=== PATIENT | male | born 1990 | race Caucasian/White ===

== ENCOUNTER 2016-07-20 22:05 | Emergency (ER) | payer BC ==
[2016-07-20] MEDS ORDERED: Sodium Chloride 0.9% 2.5 ML Syringe FLUSH PRN (22:25)
[2016-07-20] MEDS ORDERED: Ondansetron 4 MG/2 ML SDV IVPUSH ONE (22:25)
[2016-07-20] MEDS ORDERED: Ketorolac 30 MG/ML SDV IVPUSH ONE (22:25)
[2016-07-20] MEDS ORDERED: Sodium Chloride 0.9% 1,000 ML IV ONE ×2 (22:25→23:54)
[2016-07-20] MEDS ORDERED: Acetaminophen 500 MG Tab PO ONE (22:25)
[2016-07-20] MEDS ORDERED: Sodium Chloride 0.9% 10 ML Syringe FLUSH PRN (22:25)
--- NOTE | 2016-07-20 22:30 | EDM.PDOC ---
ED HPI GENERAL MEDICAL PROBLEM - General Chief Complaint: Neurological Problem Stated Complaint: DIZZY/WEAK/FEVER Time Seen by Provider: 07/20/16 22:18 - History of Present Illness INITIAL COMMENTS - FREE TEXT/NARRATIVE: HISTORY AND PHYSICAL: History of present illness: The patient is a 26-year-old male with no stated medical problems who presents with complaints of feeling poorly yesterday with some nausea but no vomiting as well as chills and occasional cough. Patient states that the symptoms progressed today and seemed to get worse about 10 AM when he was at work and he felt very lightheaded and dizzy and thought he might pass out. At that time he felt very cold and take his temperature and according to his blood pressure was "low" when it was checked at work. He did not seek treatment at that time and says that he has been having intermittent coughing and vomiting all day today. He is thirsty but he cannot keep anything down. He said no urinary complaints no flank pain no abdominal pain no chest pain or shortness of breath. He has had no diarrhea. He has no leg pain specifically but says that his whole body is achy and he feels generalized weakness. The patient says that when he tries to stand up he feels very lightheaded but he has not truly pass out or blacked out. He has a slight sore throat congestion but no discrete localized headache neck pain or back pain. Is no focal weakness or neurosensory changes. Patient did not get his influenza shot this year and has no surgical history is significant. Review of systems: As per history of present illness and below otherwise all systems reviewed and negative. Past medical history: As per history of present illness and as reviewed below otherwise noncontributory. Surgical history: As per history of present illness and as reviewed below otherwise noncontributory. Social history: No reported history of drug or alcohol abuse. Family history: As per history of present illness and as reviewed below otherwise noncontributory. Physical exam: General: Well-developed well-nourished overweight male who is nontoxic but looks very flushed in his lips are very dry. He is speaking clearly and has an occasional dry cough on my evaluation. Vital signs as noted by me including the temperature of 101.9. HEENT: Atraumatic, normocephalic, pupils reactive, negative for conjunctival pallor or scleral icterus, mucous membranes tacky, throat clear of exudates the bilateral tonsils are enlarged and reddened the right slightly greater than the left the uvula is midline without shift and the tonsils are not kissing, there is some shotty cervical adenopathy anteriorly but no posterior adenopathy and no nuchal rigidity no sinus tenderness,, neck supple, nontender, trachea midline. Lungs: Clear to auscultation, breath sounds equal bilaterally, chest nontender. No work or breathing or sensory muscle use Heart: S1S2, regular rhythm in telemetry tachycardic rate on my evaluation, negative for clicks, rubs, or JVD. Abdomen: Soft, nondistended, nontender. Bowel sounds are hypoactive Negative for masses or hepatosplenomegaly. Negative for costovertebral tenderness. Pelvis: Stable nontender. Genitourinary: Deferred. Rectal: Deferred. Extremities: Atraumatic, negative for cords or calf pain. Neurovascular unremarkable. Full range of motion without defects or deficits Neuro: Awake, alert, oriented. Cranial nerves II through XII unremarkable. Cerebellum unremarkable. Motor and sensory unremarkable throughout. Exam nonfocal. Back: There are no midline step-offs tenderness or defects the thoracic or lumbar spine and no CVA or lumbar paraspinal tenderness on palpation. Diagnostics: EKG CBC CMP lactic acid UA urine culture blood cultures x2 troponin Monospot influenza swab rapid strep chest x-ray orthostatic vitals Therapeutics: IV O2 monitor IV fluids Zofran Toradol Tylenol Rocephin Decadron Patient was made aware of all testing results and care plan for home. He is currently receiving the remainder of his IV fluids, the second liter, and he has finished his antibiotics. We'll plan on discharge home on Cefdnir and close followup with family physician. I will advise Tylenol and ibuprofen around the clock for fevers and hydration. I've advised him about reasons to return to the ER Impression: Strep tonsillitis/leukocytosis and fever, lightheadedness and clinical dehydration improving Definitive disposition and diagnosis as appropriate pending reevaluation and review of above. - Related Data Allergies Allergy/AdvReac Type Severity Reaction Status Date / Time No Known Allergies Allergy Verified 07/20/16 22:23 Home Meds: Home Meds . [No Known Home Meds] 07/20/16 [History] ED ROS GENERAL - Review of Systems Review Of Systems: ROS reveals no pertinent complaints other than HPI. ED EXAM, GENERAL - Physical Exam Exam: See Below (See dictation) Course - Vital Signs Last Recorded V/S: Last Vital Signs Temp 37.4 C 07/21/16 00:12 Pulse 93 07/21/16 00:12 Resp 18 07/21/16 00:12 BP 122/61 07/21/16 00:12 Pulse Ox 95 07/21/16 00:12 - Orders/Labs/Meds Orders: Active Orders 24 hr Category Date Time Status Blood Glucose Check, Bedside [RC] ONETIME Care 07/20/16 22:24 Active Cardiac Monitoring [RC] . DIRECTED Care 07/20/16 22:24 Active EKG Documentation Completion [RC] STAT Care 07/20/16 22:24 Active Orthostatic Vital Signs [RC] ASDIRECTED Care 07/20/16 22:25 Inactive Pulse Oximetry [RC] ASDIRECTED Care 07/20/16 22:24 Active Chest 2V [CR] Stat Exams 07/20/16 22:25 Taken CULTURE BLOOD [BC] Stat Lab 07/20/16 22:37 Received CULTURE BLOOD [BC] Stat Lab 07/20/16 22:45 Received CULTURE URINE [RM] Stat Lab 07/20/16 23:14 Received Sodium Chloride 0.9% [Saline Flush] Med 07/20/16 22:25 Active 10 ml FLUSH ASDIRECTED PRN Sodium Chloride 0.9% [Saline Flush] Med 07/20/16 22:25 Active 2.5 ml FLUSH ASDIRECTED PRN Blood Culture x2 Reflex Set [OM.PC] Stat Oth 07/20/16 22:24 Ordered Saline Lock Insert [OM.PC] Stat Oth 07/20/16 22:24 Ordered Medication Orders Sodium Chloride (Saline Flush) 10 ml FLUSH ASDIRECTED PRN PRN Reason: Keep Vein Open Last Admin: 07/21/16 00:19 Dose: 10 ml Sodium Chloride (Saline Flush) 2.5 ml FLUSH ASDIRECTED PRN PRN Reason: Keep Vein Open Last Admin: 07/21/16 00:19 Dose: 2.5 ml Labs: Laboratory Tests 07/20/16 07/20/16 07/20/16 Range/Units 22:37 22:37 22:37 WBC 22.71 H (4.0-11.0) K/uL RBC 4.76 (4.50-5.90) M/uL Hgb 14.0 (13.0-17.0) g/dL Hct 42.2 (38.0-50.0) % MCV 88.7 (80.0-98.0) fL MCH 29.4 (27.0-32.0) pg MCHC 33.2 (31.0-37.0) g/dL RDW Std Deviation 41.4 (28.0-62.0) fl RDW Coeff of Jason 13 (11.0-15.0) % Plt Count 202 (150-400) K/uL MPV 10.40 (7.40-12.00) fL Add Manual Diff YES Neutrophils % (Manual) 72 (48.0-80.0) % Band Neutrophils % 14 % Lymphocytes % (Manual) 6 L (16.0-40.0) % Monocytes % (Manual) 8 (0.0-15.0) % Nucleated RBC % 0.0 /100WBC Absolute Seg Neuts 16.4 Band Neutrophils # 3.2 Lymphocytes # (Manual) 1.4 Monocytes # (Manual) 1.8 Nucleated RBCs # 0 K/uL Lactate 1.4 (0.20-2.00) mmol/L Sodium 136 (136-146) mmol/L Potassium 4.0 (3.5-5.1) mmol/L Chloride 105 (98-110) mmol/L Carbon Dioxide 22 (21-31) mmol/L BUN 15 (6.0-23.0) mg/dL Creatinine 1.0 (0.6-1.5) mg/dL Est Cr Clr Drug Dosing 114.57 mL/min Estimated GFR (MDRD) > 60.0 ml/min Glucose 131 H (60-110) mg/dL POC Glucose (60-110) mg/dL Calcium 8.7 L (8.8-10.8) mg/dL Total Bilirubin 1.1 (0.1-1.5) mg/dL AST 18 (5-40) IU/L ALT 41 (8-54) IU/L Alkaline Phosphatase 67 (40-150) Troponin I (0.0-0.29) NG/ML Total Protein 7.0 (6.0-8.0) g/dL Albumin 3.7 (3.5-5.0) g/dL Globulin 3.3 (2.0-3.5) g/dL Albumin/Globulin Ratio 1.1 L (1.3-2.8) Urine Color Urine Appearance Urine pH (5.0-8.0) Ur Specific [place] (1.001-1.035) Urine Protein (NEGATIVE) mg/dL Urine Glucose (UA) (NEGATIVE) mg/dL Urine Ketones (NEGATIVE) mg/dL Urine Occult Blood (NEGATIVE) Urine Nitrite (NEGATIVE) Urine Bilirubin (NEGATIVE) Urine Urobilinogen (<2.0) EU/dL Ur Leukocyte Esterase (NEGATIVE) Urine RBC (0-2/HPF) Urine WBC (0-5/HPF) Ur Epithelial Cells (NONE-FEW) Amorphous Sediment (NEGATIVE) Urine Bacteria (NEGATIVE) Monoscreen (NEG) 07/20/16 07/20/16 07/20/16 Range/Units 22:37 22:37 23:09 WBC (4.0-11.0) K/uL RBC (4.50-5.90) M/uL Hgb (13.0-17.0) g/dL Hct (38.0-50.0) % MCV (80.0-98.0) fL MCH (27.0-32.0) pg MCHC (31.0-37.0) g/dL RDW Std Deviation (28.0-62.0) fl RDW Coeff of Jason (11.0-15.0) % Plt Count (150-400) K/uL MPV (7.40-12.00) fL Add Manual Diff Neutrophils % (Manual) (48.0-80.0) % Band Neutrophils % % Lymphocytes % (Manual) (16.0-40.0) % Monocytes % (Manual) (0.0-15.0) % Nucleated RBC % /100WBC Absolute Seg Neuts Band Neutrophils # Lymphocytes # (Manual) Monocytes # (Manual) Nucleated RBCs # K/uL Lactate (0.20-2.00) mmol/L Sodium (136-146) mmol/L Potassium (3.5-5.1) mmol/L Chloride (98-110) mmol/L Carbon Dioxide (21-31) mmol/L BUN (6.0-23.0) mg/dL Creatinine (0.6-1.5) mg/dL Est Cr Clr Drug Dosing mL/min Estimated GFR (MDRD) ml/min Glucose (60-110) mg/dL POC Glucose 106 (60-110) mg/dL Calcium (8.8-10.8) mg/dL Total Bilirubin (0.1-1.5) mg/dL AST (5-40) IU/L ALT (8-54) IU/L Alkaline Phosphatase (40-150) Troponin I < 0.10 (0.0-0.29) NG/ML Total Protein (6.0-8.0) g/dL Albumin (3.5-5.0) g/dL Globulin (2.0-3.5) g/dL Albumin/Globulin Ratio (1.3-2.8) Urine Color Urine Appearance Urine pH (5.0-8.0) Ur Specific [place] (1.001-1.035) Urine Protein (NEGATIVE) mg/dL Urine Glucose (UA) (NEGATIVE) mg/dL Urine Ketones (NEGATIVE) mg/dL Urine Occult Blood (NEGATIVE) Urine Nitrite (NEGATIVE) Urine Bilirubin (NEGATIVE) Urine Urobilinogen (<2.0) EU/dL Ur Leukocyte Esterase (NEGATIVE) Urine RBC (0-2/HPF) Urine WBC (0-5/HPF) Ur Epithelial Cells (NONE-FEW) Amorphous Sediment (NEGATIVE) Urine Bacteria (NEGATIVE) Monoscreen NEGATIVE (NEG) 07/20/16 Range/Units 23:30 WBC (4.0-11.0) K/uL RBC (4.50-5.90) M/uL Hgb (13.0-17.0) g/dL Hct (38.0-50.0) % MCV (80.0-98.0) fL MCH (27.0-32.0) pg MCHC (31.0-37.0) g/dL RDW Std Deviation (28.0-62.0) fl RDW Coeff of Jason (11.0-15.0) % Plt Count (150-400) K/uL MPV (7.40-12.00) fL Add Manual Diff Neutrophils % (Manual) (48.0-80.0) % Band Neutrophils % % Lymphocytes % (Manual) (16.0-40.0) % Monocytes % (Manual) (0.0-15.0) % Nucleated RBC % /100WBC Absolute Seg Neuts Band Neutrophils # Lymphocytes # (Manual) Monocytes # (Manual) Nucleated RBCs # K/uL Lactate (0.20-2.00) mmol/L Sodium (136-146) mmol/L Potassium (3.5-5.1) mmol/L Chloride (98-110) mmol/L Carbon Dioxide (21-31) mmol/L BUN (6.0-23.0) mg/dL Creatinine (0.6-1.5) mg/dL Est Cr Clr Drug Dosing mL/min Estimated GFR (MDRD) ml/min Glucose (60-110) mg/dL POC Glucose (60-110) mg/dL Calcium (8.8-10.8) mg/dL Total Bilirubin (0.1-1.5) mg/dL AST (5-40) IU/L ALT (8-54) IU/L Alkaline Phosphatase (40-150) Troponin I (0.0-0.29) NG/ML Total Protein (6.0-8.0) g/dL Albumin (3.5-5.0) g/dL Globulin (2.0-3.5) g/dL Albumin/Globulin Ratio (1.3-2.8) Urine Color YELLOW Urine Appearance CLEAR Urine pH 7.5 (5.0-8.0) Ur Specific [place] 1.020 (1.001-1.035) Urine Protein 30 (NEGATIVE) mg/dL Urine Glucose (UA) NEGATIVE (NEGATIVE) mg/dL Urine Ketones NEGATIVE (NEGATIVE) mg/dL Urine Occult Blood NEGATIVE (NEGATIVE) Urine Nitrite NEGATIVE (NEGATIVE) Urine Bilirubin NEGATIVE (NEGATIVE) Urine Urobilinogen 2.0 H (<2.0) EU/dL Ur Leukocyte Esterase NEGATIVE (NEGATIVE) Urine RBC 0-2 (0-2/HPF) Urine WBC 0-2 (0-5/HPF) Ur Epithelial Cells RARE (NONE-FEW) Amorphous Sediment LIGHT (NEGATIVE) Urine Bacteria RARE (NEGATIVE) Monoscreen (NEG) Meds: Medications Generic Name Dose Route Start Last Admin Trade Name Freq PRN Reason Stop Dose Admin Sodium Chloride 10 ml 07/20/16 22:25 07/21/16 00:19 Saline Flush FLUSH 10 ml ASDIRECTED PRN Administration Keep Vein Open Sodium Chloride 2.5 ml 07/20/16 22:25 07/21/16 00:19 Saline Flush FLUSH 2.5 ml ASDIRECTED PRN Administration Keep Vein Open Discontinued Medications Generic Name Dose Route Start Last Admin Trade Name [place] PRN Reason Stop Dose Admin Acetaminophen 1,000 mg 07/20/16 22:25 07/20/16 22:48 Tylenol Extra Strength PO 07/20/16 22:26 1,000 mg ONETIME ONE Administration Dexamethasone 8 mg 07/21/16 00:49 Dexamethasone IVPUSH 07/21/16 00:50 ONETIME ONE Dexamethasone 10 mg 07/21/16 01:09 Dexamethasone IVPUSH 07/21/16 01:10 ONETIME ONE Dexamethasone Confirm 07/21/16 01:16 Dexamethasone Administered 07/21/16 01:17 Dose 10 mg .ROUTE .STK-MED ONE Sodium Chloride 1,000 mls @ 999 mls/hr 07/20/16 22:25 07/20/16 22:40 Normal Saline IV 07/20/16 23:25 999 mls/hr STAT ONE Administration Ceftriaxone Sodium/Dextrose 2 50 mls @ 100 mls/hr 07/20/16 23:53 07/21/16 00: 14 gm/ Premix IV 07/21/16 00:22 100 mls/hr ONETIME ONE Administration Sodium Chloride 1,000 mls @ 999 mls/hr 07/20/16 23:54 07/21/16 00:13 Normal Saline IV 07/21/16 00:54 999 mls/hr STAT ONE Administration Ketorolac Tromethamine 30 mg 07/20/16 22:25 07/20/16 22:44 Toradol IVPUSH 07/20/16 22:26 30 mg ONETIME ONE Administration Ondansetron HCl 4 mg 07/20/16 22:25 07/20/16 22:42 Zofran IVPUSH 07/20/16 22:26 4 mg ONETIME ONE Administration Departure - Departure Time of Disposition: 01:22 Disposition: Home, Self-Care 01 Condition: good Clinical Impression: Strep pharyngitis, Dehydration, Lightheadedness Leukocytosis Qualifiers: Leukocytosis type: bandemia Qualified Code(s): D72.825 - Bandemia Referrals: PCP,None [Primary Care Provider] - Forms: ED Department Discharge Additional Instructions: The following information is given to patients seen in the emergency department who are being discharged to home. This information is to outline your options for follow-up care. We provide all patients seen in our emergency department with a follow-up referral. The need for follow-up, as well as the timing and circumstances, are variable depending upon the specifics of your emergency department visit. If you don't have a primary care physician on staff, we will provide you with a referral. We always advise you to contact your personal physician following an emergency department visit to inform them of the circumstance of the visit and for follow-up with them and/or the need for any referrals to a consulting specialist. The emergency department will also refer you to a specialist when appropriate. This referral assures that you have the opportunity for followup care with a specialist. All of these measure are taken in an effort to provide you with optimal care, which includes your followup. Under all circumstances we always encourage you to contact your private physician who remains a resource for coordinating your care. When calling for followup care, please make the office aware that this follow-up is from your recent emergency room visit. If for any reason you are refused follow-up, please contact the [facility] emergency department at and ask to speak to the emergency department charge nurse. [facility] Primary care- [place] [address] Please take Tylenol every 4-6 hours and Motrin every 6 hours to keep your fever down for the next several days. Please push hydration as we discussed. Take all medications as prescribed until they are finished. Please call and followup with one of our clinic physicians for further reevaluation and care and a repeat blood count once you are improving. Return to ER as needed and as discussed. - My Orders Last 24 Hours: My Active Orders 07/20/16 22:24 Blood Glucose Check, Bedside [RC] ONETIME Cardiac Monitoring [RC] . DIRECTED EKG Documentation Completion [RC] STAT Pulse Oximetry [RC] ASDIRECTED Blood Culture x2 Reflex Set [OM.PC] Stat Saline Lock Insert [OM.PC] Stat 07/20/16 22:25 Orthostatic Vital Signs [RC] ASDIRECTED Chest 2V [CR] Stat Sodium Chloride 0.9% [Saline Flush] 10 ml FLUSH ASDIRECTED PRN Sodium Chloride 0.9% [Saline Flush] 2.5 ml FLUSH ASDIRECTED PRN 07/20/16 22:37 CULTURE BLOOD [BC] Stat 07/20/16 22:45 CULTURE BLOOD [BC] Stat 07/20/16 23:14 CULTURE URINE [RM] Stat - Assessment/Plan Last 24 Hours: My Active Orders 07/20/16 22:24 Blood Glucose Check, Bedside [RC] ONETIME Cardiac Monitoring [RC] . DIRECTED EKG Documentation Completion [RC] STAT Pulse Oximetry [RC] ASDIRECTED Blood Culture x2 Reflex Set [OM.PC] Stat Saline Lock Insert [OM.PC] Stat 07/20/16 22:25 Orthostatic Vital Signs [RC] ASDIRECTED Chest 2V [CR] Stat Sodium Chloride 0.9% [Saline Flush] 10 ml FLUSH ASDIRECTED PRN Sodium Chloride 0.9% [Saline Flush] 2.5 ml FLUSH ASDIRECTED PRN 07/20/16 22:37 CULTURE BLOOD [BC] Stat 07/20/16 22:45 CULTURE BLOOD [BC] Stat 07/20/16 23:14 CULTURE URINE [RM] Stat
[2016-07-20 23:10] LABS: CHLORIDE,CL 105 mmol/L (98-110); SODIUM,NA 136 mmol/L (136-146)
[2016-07-20] MEDS ORDERED: cefTRIAXone 2 GM in Premix Bag 1 BAG IV ONE (23:53)
[2016-07-21] MEDS ORDERED: Dexamethasone 4 MG/ML SDV IVPUSH ONE ×2 (00:49→01:09)
[2016-07-21] MEDS: Dexamethasone 10 MG/ML SDV ONE ×2 (01:20→01:23)
[2016-07-21 01:56] VITALS: BP 104/60
--- NOTE | 2016-07-21 11:32 | CR ---
EXAM DATE: 07/20/16 PATIENT'S AGE: 26 Patient: REECE PAPPAS Facility: [place], [place] Site . Site : 1990 Study: XRay Chest [id number] 11:40:37 PM Ordering Physician: Tammy Klein Final Report: INDICATION: dizziness, fever, weakness TECHNIQUE: Chest 2 views COMPARISON: None FINDINGS: Cardiovascular and mediastinum: Heart size and vasculature are normal in caliber and appearance. Mediastinum is within normal limits. Lungs and pleural spaces: No focal consolidation. No sign of pleural effusion. No pneumothorax. Bones and soft tissues: No significant findings. IMPRESSION: No acute cardiopulmonary disease. Dictated by Bayron Glover MD @ 07/20/2016 11:44:36 PM Dictated by: Bayron Glover MD @ 07/20/2016 23:45:42 (Electronic Signature) Report Signed by Proxy and Original Signed Document filed in the Medical Record. [facility]
== END 2016-07-21 01:50 | disposition home or self-care (01) ==
LOC: MW.ED 22:05
DX: E86.0 Dehydration (principal); J02.0 Streptococcal pharyngitis; D72.825 Bandemia
CPT/HCPCS: 36415; 71020; 80053; 81001; 82962; 83605; 84484; 85025; 86308; 87040; 87086; 87804; 87880; 93005; 96361; 96365; 96375; 99284; A9270; J0696; J1100; J1885; J2405; J7040

== ENCOUNTER 2022-03-31 07:24 | Day surgery (SDC) | payer BC ==
[~2022-03-31 07:24] MED LIST: Lactated Ringers 1,000 ML IV SCH
[2022-03-31] MEDS ORDERED: Propofol 200 MG/20 ML SDV ONE (07:34)
[2022-03-31] MEDS ORDERED: Lidocaine 2% 5 ML SDV ONE (07:34)
[2022-03-31] MEDS ORDERED: fentaNYL 100 MCG/2 ML SDV ONE (07:34)
[2022-03-31] MEDS ORDERED: Naloxone 0.4 MG/ML SDV IVPUSH PRN (07:50)
[2022-03-31] MEDS ORDERED: Albuterol 0.083% 2.5 MG/3 ML Neb Soln NEB PRN (07:50)
[2022-03-31] MEDS ORDERED: fentaNYL 50 MCG/ML SDV IVPUSH PRN (07:50)
[2022-03-31] MEDS ORDERED: HYDROmorphone 1 MG/ML Syringe IVPUSH PRN (07:50)
[2022-03-31] MEDS ORDERED: Ondansetron 4 MG/2 ML SDV IVPUSH PRN (07:50)
[2022-03-31] MEDS ORDERED: Morphine 2 MG/ML SYRINGE IVPUSH PRN (07:50)
[2022-03-31] MEDS ORDERED: Metoclopramide 10 MG/2 ML SDV IVPUSH PRN (07:50)
[2022-03-31 10:14] VITALS: BP 123/61; PULSE 62
== END 2022-03-31 10:03 | disposition home or self-care (01) ==
LOC: MW.SDS 07:24
PROVIDERS: ATTEND Surgery
DX: K29.50 Unspecified chronic gastritis without bleeding (principal); K21.9 Gastro-esophageal reflux disease without esophagitis; R19.5 Other fecal abnormalities; E66.9 Obesity, unspecified; K52.9 Noninfective gastroenteritis and colitis, unspecified; F17.210 Nicotine dependence, cigarettes, uncomplicated; Z68.41 Body mass index [BMI] 40.0-44.9, adult; Z98.890 Other specified postprocedural states
CPT/HCPCS: 43239; 45380; J2704; J3010; J7120

== ENCOUNTER 2024-04-21 09:23 | Emergency (ER) | payer BC ==
[2024-04-21] MEDS ORDERED: Sodium Chloride 0.9% 10 ML Syringe FLUSH PRN (09:25)
[2024-04-21] MEDS ORDERED: Sodium Chloride 0.9% 2.5 ML Syringe FLUSH PRN (09:25)
[2024-04-21 09:52] LABS: BASOPHILS ABSOLUTE AUTO 0.07 K/uL (0.00-0.20); BASOPHILS PERCENT AUTO 0.5 % (0.0-1.0); EOSINOPHILS ABSOLUTE AUTO 0.46 K/uL (0.00-0.45); EOSINOPHILS PERCENT AUTO 3.2 % (0.0-6.0); HEMATOCRIT 52.2 % (42.0-52.0); IMMATURE GRAN ABSOLUTE AUTO 0.14 K/uL (0.00-0.05); LYMPHOCYTES ABSOLUTE AUTO 3.22 K/uL (1.00-4.80); LYMPHOCYTES PERCENT AUTO 22.2 % (24.0-44.0); MEAN CORPUSCULAR HEMOGLOBIN 29.4 pg (28.0-32.0); MEAN CORPUSCULAR HGB CONC 34.5 g/dL (32.0-36.0); MEAN CORPUSCULAR VOLUME 85.2 fL (83.0-99.0); MEAN PLATELET VOLUME 9.7 fL (9.4-12.4); MONOCYTES ABSOLUTE AUTO 0.88 K/uL (0.00-0.80); MONOCYTES PERCENT AUTO 6.1 % (0.0-8.0); NEUTROPHILS ABSOLUTE AUTO 9.73 K/uL (1.80-7.70); PLATELET COUNT,PLT 243 K/uL (150-400); RED BLOOD CELL COUNT 6.13 M/uL (4.52-5.90)
[2024-04-21 10:35] LABS: A/G RATIO 0.9 (0.9-1.6); ALANINE AMINOTRANSFERASE,ALT 37 IU/L (14-63); ALBUMIN 3.7 g/dL (3.4-5.0); ALKALINE PHOSPHATASE 97 U/L (46-116); ASPARTATE AMNIOTRANSFERASE,AST 16 IU/L (15-37); BILIRUBIN TOTAL 1.2 mg/dL (0.2-1.0); BLOOD UREA NITROGEN,BUN 10 mg/dL (7.0-18.0); CALCIUM 8.8 mg/dL (8.5-10.1); CARBON DIOXIDE,CO2 28.2 mmol/L (21.0-32.0); CHLORIDE,CL 104 mmol/L (98-107); EST CRCL DRUG DOSING (CG) 107.47 mL/min; GLUCOSE RANDOM 90 mg/dL (74-106); POTASSIUM,K 3.9 mmol/L (3.5-5.1); PROTEIN TOTAL,TP 7.8 g/dL (6.4-8.2); SODIUM,NA 142 mmol/L (136-148)
[2024-04-21 10:36] LABS: ESTIMATED GFR 101 mL/min (>60)
[2024-04-21] MEDS: Potassium Chloride 10 MEQ Tab.ER PO ONE (11:36)
[2024-04-21 13:12] VITALS: BP 119/68; PULSE 77
== END 2024-04-21 13:11 | disposition home or self-care (01) ==
LOC: MW.ED 09:23
DX: R00.2 Palpitations (principal); R07.89 Other chest pain; E66.9 Obesity, unspecified; Z79.899 Other long term (current) drug therapy; Z75.8 Other problems related to medical facilities and other health care; Z68.35 Body mass index [BMI] 35.0-35.9, adult
CPT/HCPCS: 36415; 71046; 80053; 83735; 84484; 85025; 93005; 99285; A9270; 93010; 99283